=== PATIENT | female | born 1985 | race Caucasian/White ===

== ENCOUNTER 2019-12-27 07:38 | Outpatient (CLI) | payer BC ==
[2019-12-27] VITALS (21 sets, daily range): BP systolic 96–135; BP diastolic 56–89
== END 2019-12-27 23:59 | disposition home or self-care (01) ==
LOC: CARD DIAG 07:38
PROVIDERS: ATTEND Internal Medicine Cardiovascular Disease
DX: R42 Dizziness and giddiness (principal)
CPT/HCPCS: 93660